=== PATIENT | male | born 1990 | race Caucasian/White ===

== ENCOUNTER 2023-04-26 20:15 | Emergency (ER) | payer BC, SELFPAY ==
[2023-04-26] VITALS (26 sets, daily range): BP systolic 125–163; BP diastolic 77–103; PULSE 80–109; RESP 16–20; TEMP 36.7; O2SAT 91–100; BMI 23.6
--- NOTE | 2023-04-26 20:30 | CRLHL7_ITS ---
For Patients: As a result of the Cures Act, medical imaging exams and procedure reports are released immediately into your electronic medical record. You may view this report before your referring provider. If you have questions, please contact your health care provider. Indication: Dislocation. Technique: Left shoulder 3 views. Comparison: None. Findings/Impression: Bones: Anterior dislocation of the glenohumeral joint. No fractures or bone lesions. No sign of acute injury. Joint spaces: Unremarkable. Soft tissues: Unremarkable. Dictated by Valdez Justin MD @ 04/26/2023 9:15:18 PM (Electronically Signed)
--- NOTE | 2023-04-26 20:33 | ED.UPPEXIN ---
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 He feels like the shoulder is dislocated. He has had no other significant injuries no headaches no change in his sensorium no neck pain no chest pain no orthopnea no PND. He is unable lift is elbow but is otherwise neurovascularly intact. The injury occurred immediately prior to arrival and he states pain is 8/10. Related Data Home Medications Medication Instructions Recorded Confirmed No Known Home Medications 04/26/23 04/26/23 Allergies Allergy/AdvReac Type Severity Reaction Status Date / Time No Known Drug Allergies Allergy Verified 04/26/23 20:27 Review of Systems Status of ROS: Reports: 10 or more systems reviewed and unremarkable except as noted in History and below Exam Narrative: Exam Narrative: EXAM GENERAL: Patient appears comfortable and well. EYES: No scleral icterus. LYMPH: No supraclavicular or cervical lymphadenopathy. SKIN: Visible skin seen during exam normal or with benign process only. EXT: Obvious deformity of the left shoulder consistent with shoulder dislocation. HEART: Regular rate and rhythm with no murmurs, rubs, or gallops. LUNGS: Clear to auscultation bilaterally with no crackles or wheezes. ABD: Soft, non tender, non distended. PSYCH: Good eye contact, speech is not pressured. Const: Vital Signs, click to edit/add: Vital Signs - 24 hr 04/26/23 20:20 04/26/23 21:11 04/26/23 21:12 Temperature 98.1 F Pulse Rate 99 109 H Pulse Rate [Pulse Oximeter] 108 H Respiratory Rate 16 20 18 Blood Pressure 126/103 H 163/101 H Blood Pressure [Ri ght Upper Arm] 148/101 H Pulse Oximetry 97 100 100 Oxygen Delivery Me thod Room Air Nasal Cannula Nasal Cannula Oxygen Flow Rate 2 2 04/26/23 21:13 04/26/23 21:17 04/26/23 21:18 Temperature Pulse Rate 107 H 85 90 Pulse Rate [Pulse Oximeter] Respiratory Rate 18 18 16 Blood Pressure 135/87 Blood Pressure [Ri ght Upper Arm] Pulse Oximetry 91 95 94 Oxygen Delivery Me thod Nasal Cannula Nasal Cannula Room Air Oxygen Flow Rate 2 2 04/26/23 21:20 04/26/23 21:22 04/26/23 21:25 Temperature Pulse Rate 85 85 88 Pulse Rate [Pulse Oximeter] Respiratory Rate Blood Pressure 131/90 H Blood Pressure [Ri ght Upper Arm] Pulse Oximetry 94 98 98 Oxygen Delivery Me thod Room Air Room Air Room Air Oxygen Flow Rate 04/26/23 21:27 04/26/23 21:30 04/26/23 21:32 Temperature Pulse Rate 82 80 83 Pulse Rate [Pulse Oximeter] Respiratory Rate Blood Pressure 138/84 139/82 Blood Pressure [Ri ght Upper Arm] Pulse Oximetry 98 97 98 Oxygen Delivery Me thod Room Air Room Air Room Air Oxygen Flow Rate Course Course ED Course: Patient given [place] 1 tablet as well as x-ray of the left shoulder. Reevaluation(s) Reevaluation #1: patient has obvious dislocation on his x-ray. With anesthesia present after obtaining informed consent I did use the traction counter traction method to reduce his left shoulder with patient under anesthesia with propofol. He was then placed in a splint and repeat x-ray confirms relocation of his left proximal Humerus. Vital Signs Vital signs: Initial Vital Signs Temperature 98.1 F 04/26/23 20:20 Temperature Source Temporal Artery Scan 04/26/23 20:20 Pulse Rate 108 H 04/26/23 20:20 Respiratory Rate 16 04/26/23 20:20 Blood Pressure 148/101 H 04/26/23 20:20 Blood Pressure Mean 116 H 04/26/23 20:20 Blood Pressure Position Standing 04/26/23 20:20 Pulse Oximetry 97 04/26/23 20:20 Oxygen Delivery Method Room Air 04/26/23 20:20 Vital Signs Temperature 98.1 F 04/26/23 20:20 Pulse Rate 108 H 04/26/23 20:20 Respiratory Rate 16 04/26/23 20:20 Blood Pressure 148/101 H 04/26/23 20:20 Pulse Oximetry 97 04/26/23 20:20 Oxygen Delivery Method Room Air 04/26/23 20:20 Temperature 98.1 F 04/26/23 20:20 Pulse Rate 83 04/26/23 21:32 Respiratory Rate 16 04/26/23 21:18 Blood Pressure 139/82 04/26/23 21:32 Pulse Oximetry 98 04/26/23 21:32 Oxygen Delivery Method Room Air 04/26/23 21:32 Oxygen Flow Rate 2 04/26/23 21:17 Medications Administered Medications: Generic Name Dose Route Start Last Admin Trade Name Mony PRN Reason Stop Dose Admin Hydrocodone Bitart/Acetaminophen 1 tab 04/26/23 20:30 04/26/23 20:39 Hydrocodone-Acetamin 5-325 Mg 1 Tab PO 04/26/23 20:31 1 tab ONCE ONE Administration Hydromorphone HCl 0.5 mg 04/26/23 21:33 04/26/23 21:46 Hydromorphone 0.5 Mg/0.5 Ml Inj IVP 04/26/23 21:34 0.5 mg ONCE ONE Administration MDM - Extremity Injury (Upper) MDM Narrative Medical decision making narrative: Patient presents with shoulder dislocation after an injury. He is otherwise uninjured. Exam is otherwise normal. With anesthesia on board in the form of propofol he did successfully relocated his left shoulder. He is placed in the sling and I did recommend orthopedic follow-up in the near future. We will treat with 8 tablets of Vicodin 1-2 every 6 as needed. Ice Tylenol Motrin rest. Differential Diagnosis Differential diagnosis: Likely sprain and strain of wrist, fracture of wrist, Colles' fracture, dislocation of shoulder, fracture of humerus and fracture of clavicle Discharge Plan Discharge Clinical Impression: Anterior shoulder dislocation Patient Disposition: Home w/ Parent or Adult Condition: Stable Instructions: Shoulder Dislocation (ED) Additional Instructions: wear sling for the next week follow-up with orthopedics in the next week Paulette for severe pain ice Tylenol Motrin Activity Level: No Restrictions Discharge Diet: Regular Prescriptions: No Action No Known Home Medications Follow Up/Referrals: Provider,Not a Local [Primary Care Provider] - Stand Alone Forms: [employer] Info Instructions
[2023-04-26] MEDS: HYDROCODONE-ACETAMIN 5-325 MG 1 TAB PO (20:39)
[2023-04-26] MEDS: 0.9 % SODIUM CHLORIDE 1000 ml 1,000 ML IV (21:00)
--- NOTE | 2023-04-26 21:05 | ED.NURSE ---
Conscious sedation checklist performed. TOMMY Contreras and MD Castellanos at bedside performing shoulder reduction procedure.
--- NOTE | 2023-04-26 21:25 | CRLHL7_ITS ---
For Patients: As a result of the Cures Act, medical imaging exams and procedure reports are released immediately into your electronic medical record. You may view this report before your referring provider. If you have questions, please contact your health care provider. Indication: Postreduction. Technique: Left shoulder 2 views. Comparison: None. Findings/Impression: Successful reduction. Bone alignment is normal. No fracture or other new abnormality. Dictated by Valdez Justin MD @ 04/26/2023 10:27:53 PM (Electronically Signed)
--- OUTSIDE RECORDS SUMMARY | 2023-04-26 21:41 | XMS_ITS | Clinical Summary ---
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 0 Active oxyCODONE (ROXICODONE) 5 mg immediate release tabletIndications:Per ianal fistula Take 1 Tablet (5 mg) by mouth every 4 hours if needed for Pain. 12 Tablet 0 03/06/2023 Active Active Problems Problem Noted Date Diagnosed Date Pure hypercholesterolemia 12/19/2021 Osteomyelitis 12/18/2017 Encounters Date Type Department Care Team Description 03/06/2023 1:16 PM CRAWLER TRACTOR OPERATOR Anesthesia Event [facility] [address] [place] [id number] Jt Stephen, TOMMY Diaz, Irma, TOMMY Student 03/06/2023 12:45 PM CRAWLER TRACTOR OPERATOR - 03/06/2023 2:03 PM CRAWLER TRACTOR OPERATOR Surgery [facility] [address] [place] [address] Opal Blue MD Fistula Exam under anesthesia 03/06/2023 11:06 AM CRAWLER TRACTOR OPERATOR - 03/06/2023 3:37 PM CRAWLER TRACTOR OPERATOR Hospital Encounter [facility] [address] [place] [phone] Opal Blue MD Perianal fistula (Primary Dx) Discharge Disposition: Home Self Care 03/05/2023 Travel from Last 3 Months Immunizations Name Administration Dates Next Due COVID-19 vaccine (Moderna 100mcg/0.5mL) MARIXA MORENO 03/13/2021 HPV 9 (Gardasil 9) 08/08/2016 Influenza, IIV3 (Age >=3 years) 01/13/2012 Family History Medical History Relation Name Comments Hypertension Father Thyroid Disease Father Good Health Mother Relation Name Status Comments Father Alive Mother Alive Social History Tobacco Use Types Packs/Day Years Used Date Smoking Tobacco: Never Smokeless Tobacco: Never Tobacco Cessation:Counseling Given: Yes Alcohol Use Standard Drinks/Week Comments Yes 0 (1 standard drink = 0.6 oz pur e alcohol) socially 4per week PHQ-2 Answer Date Recorded PHQ-2 Score 0 05/27/2019 Social Connections Answer Date Recorded Frequency of Communication with Friends and Fami ly Not on file 12/12/2021 Financial Resource Strain Answer Date R ecorded Difficulty of Paying Living Expenses Not on file 03/31/2021 Difficulty of Paying Living Expenses Not on file 03/31/2021 Sex and Gender Information Value Date Recorded Sex Assigned at Not on file Gender Identity Not on file Sexual Orientation Not on file Obstetrics History Last Filed Vital Signs Vital Sign Reading Time Taken Comments Blood Pressure 129/62 03/06/2023 2:45 PM CRAWLER TRACTOR OPERATOR Pulse 72 03/06/2023 3:00 PM CRAWLER TRACTOR OPERATOR Temperature 36.9 ??C (98.4 ??F) 03/06/2023 2:05 PM CS T Respiratory Rate 20 03/06/2023 2:05 PM CRAWLER TRACTOR OPERATOR Oxygen Saturation 100% 03/06/2023 3:00 PM CRAWLER TRACTOR OPERATOR Inhaled Oxygen Concentration - - Weight 70.3 kg (155 lb) 03/06/2023 11:22 AM CRAWLER TRACTOR OPERATOR Height 177.8 cm (5' 10) 03/06/2023 11:22 AM CRAWLER TRACTOR OPERATOR Body Mass Index 22.24 03/06/2023 11:22 AM CRAWLER TRACTOR OPERATOR Plan of Treatment Health Maintenance Due Date Last Done Comments Tdap 2001 Tetanus booster 2010 Depression screening for age 12+ 05/27/2020 05/27/2019, 08/08/2016 COVID-19 vaccine series ( season) 2022 03/13/2021, 07/27/2020, 07/06/2020 Influenza for age 9-49 11/29/2022 01/13/2012 BMI (ht and wt on same day) for age 18+ 12/12/2022 12/12/2021, 05/27/2019, 06/25/2017, Additional history exists HIV for age 15-65 Completed 12/12/2021, , 01/01/2017, Additional history exists Hepatitis C screening for age 18-79 Completed 12/12/2021, 05/27/2019, 01/01/2017, Additional history exists Pneumococcal series for age 6-64 Aged Out No longer eligible based on patient's age to complete this topic Procedures Procedure Name Priority Date/Time Associated Diagnosis Comments ENDOTRACHEAL TUBE Routine 03/06/2023 1:3 9 PM CRAWLER TRACTOR OPERATOR FISTULOTOMY Elective 03/06/2023 1:00 PM CRAWLER TRACTOR OPERATOR Anal Fistula EXAMINATION UNDER ANESTHESIA Elective 03/06/2023 1:00 PM CRAWLER TRACTOR OPERATOR Anal Fistula GLUCOSE METER Timed 03/06/2023 11:45 AM CRAWLER TRACTOR OPERATOR from Last 3 Months Results * ETT (03/06/2023 1:39 PM CRAWLER TRACTOR OPERATOR) Narrative Irma Diaz CRNA Student - 03/06/2023 1:39 PM CRAWLER TRACTOR OPERATOR Irma Diaz CRNA Student ? 03/06/2023 ??1:40 PM Procedure: ETT Patient location during procedure: OR ETT Properties Mask Ventilation: easy Final Technique: direct laryngoscopy Type: straight Location: oral Tube Size: 7.5 mm Stylet: yes Laryngoscope Blade: Mac Blade Size: 3 Cormack-Lehane Grade View: 1 Insertion Attempts: 1 Placement Verification: auscultation, end tidal CO2 and symmetrical chest wall movement Assessment: pharynx clear, atraumatic and dentition unchanged Secured at: 23 Measured From: lips Tooth guard used and removed: yes Bite Block: soft Difficulty: 0 (not difficult) Kenton Reyes MD ANESTHESIA PX NO TE ORDERABLES * GLUCOSE METER (03/06/2023 11:45 AM CRAWLER TRACTOR OPERATOR) [facility] GLUCOSE METER 88 65 - 100 mg/dL 03/06/2023 11:45 AM CRAWLER TRACTOR OPERATOR [facility] Blood BLOOD SPECIMEN / Unknown 03/06/2023 11:45 AM CRAWLER TRACTOR OPERATOR 03/06/2023 11:45 AM CRAWLER TRACTOR OPERATOR Opal Blue MD CHEMISTRY [facility] [address] [place] [address], from Last 3 Months Additional Health Concerns Infection Onset Date Last Indicated MRSA Clearance Comment:Infection Control Note: Hx of MRSA ankle wound, approx 2020, exact date unknown. surveillance criteria met, no need for further testing or isolation precautions. Do not delete or resolve the Infection Flag. 03/06/2023 03/06/2023 Advance Directives Latest Code Status on File Code Status Date Activated Date Inactivated Comments Full Code 03/06/2023 11:11 AM 03/06/2023 5:37 PM Question Answer Comments Code Status Discussion: Reviewed Preferences Care Teams Field Crop Farm Worker Relationship Specialty Start Date End Date Pcp, No . PCP - General 02/13/23
[2023-04-26] MEDS: HYDROmorphone 0.5 mg/0.5 ml inj IVP (21:46)
== END 2023-04-26 22:35 | disposition home or self-care (01) ==
PROVIDERS: Emergency Provider Internal Medicine
DX: S43.005A Unspecified dislocation of left shoulder joint, initial encounter (principal); Y93.72 Activity, wrestling
CPT/HCPCS: 23655; 73030; 99283; 99284; A9270; J1170; J2704; J7030